=== PATIENT | male | born 2000 | race Caucasian/White ===

== ENCOUNTER 2020-02-24 13:12 | Emergency (ER) | payer OTHER, SELFPAY ==
[2020-02-24 13:23] VITALS: BP 162/85; PULSE 82; RESP 16; TEMP 36.9; O2SAT 97; BMI 31.6
--- NOTE | 2020-02-24 13:51 | HMH.EDUTC ---
[facility] [place] Impression: Strep throat Impacted ear wax Qualifiers: Laterality: bilateral Qualified Code(s): H61.23 - Impacted cerumen, bilateral Disposition: Home, Self-Care Condition on Discharge: Good Instructions: DI for Cerumen Impaction, DI for Strep Throat Additional Instructions: Use over the counter Debrox drops in ears as advised on package to help clear ear wax Follow up with Family doctor if no improvement or any worsening of symptoms Return if needed Straight to ER if any life threatening symptoms *If you did not take Penicillin shot or was unable to, start taking antibiotic immediately and make sure that you take it for the FULL length of time although you should start to feel better in 24-48 hours *change toothbrush and toothpaste 24-48 hours after starting to take antibiotics so you do not reinfect yourself Monitor Temp. Tylenol and/or Ibuprofen as needed. ER if fever is no less than 101 despite alternating Tylenol and Ibuprofen * Encourage fluids, water, Gatorade, powerade, pedialyte if infant/toddler/or child *Cold fluids, popsicles and ice cream may feel good on his throat Prescriptions: Azithromycin [Z-Eugenio 250mg Tab] 250 mg PO DIRECTED #6 tab Transmission Status: Pending to [facility] #[id number] Referrals: Da Barajas MD [Primary Care Provider] - As needed Time of Disposition: 14:10 Medical Decision Making - River Inquiry Pt receiving controlled substance: No River was queried for this patient: No Vital Signs: 02/24/20 13:23 Temperature 98.4 F Temperature Source Oral Pulse Rate [Radial] 82 Respiratory Rate 16 Blood Pressure [Right Arm] 162/85 H Blood Pressure Mean [Right Arm] 110 Blood Pressure Source [Right Arm] Automatic Cuff Blood Pressure Position [Right Arm] Sitting 02 Sat by Pulse Oximetry 97 Oxygen Delivery Method Room Air [facility] [place] - General Stated complaint: ear pain Time Seen by Provider: 02/24/20 13:51 Mode of Arrival: Ambulatory Source of Information: Patient Limitations: No Limitations Description of Symptoms (Recalled from Triage Doc. by RN): left ear buildup. HEENT Symptoms (Recalled from RN notes): Yes Resp Symptoms (Recalled from RN notes): No Skin Symptoms (Recalled from RN notes): No MS Symptoms (Recalled from RN notes): No Functional Status (Recalled from RN notes): wnl - History of Present Illness Provider Complaint: Patient states that he has a history of wax build up in his ears States that for last several days he has been using sweet oil to try to break it up and it isnt working and he has not been hearing well and thinks his ears are stopped up especially his left ear States that also his throat has been red and scratchy and thinks it may be allergies but wanted to get checked for strep throat - Related Data Previous Rx's Medication Instructions Recorded Azithromycin [Z-Eugenio 250mg Tab] 250 mg PO DIRECTED #6 tab 02/24/20 Allergies Allergy/AdvReac Type Severity Reaction Status Date / Time Penicillins Allergy Unknown Verified 08/20/18 12:00 - Worker's Comp Is this a Worker's Comp case?: No [facility] History - Hepatitis A Screen Drug use history?: No High risk sexual behaviors?: No History of sexually transmitted infection?: No Currently employed?: No Childcare worker?: No Do you have indoor plumbing?: Yes Do you have electricity?: Yes Attestation statement:: This patient has been screened for Hepatitis A risk factors. I have reviewed the patient's past medical history: Yes Laterality Cases: Bilateral: Tonsillectomy Amputation: No Fractures: No - Social History Smoking Status: Never smoker Alcohol Intake: never Substance Use Type: denies use Occupational Status: other Family Hx:: Unable to obtain ROS Obtained: Yes All systems reviewed & no additional complaints, Yes Systems reviewed as appropriate & no additional complaints - Constitutional Constitutional: Reports system reviewed and no marjan
[2020-02-24 14:10] LABS: UTC Strep Screen (Rapid) Positive (Negative)
[2020-02-24 14:18] VITALS: BP 162/85; PULSE 82; RESP 16; TEMP 36.9; O2SAT 97
== END 2020-02-24 14:19 | disposition home or self-care (01) ==
PROVIDERS: Emergency Provider Nurse Practitioner; PCP Internal Medicine Adolescent Medicine
DX: J02.0 Streptococcal pharyngitis (principal); H61.23 Impacted cerumen, bilateral; Z88.0 Allergy status to penicillin
CPT/HCPCS: 87880; 99202

== ENCOUNTER 2020-12-07 12:13 | Emergency (ER) | payer OTHER, SELFPAY ==
[2020-12-07 12:16] VITALS: BP 130/77; PULSE 79; RESP 14; TEMP 36.6; O2SAT 98; BMI 31.6
[2020-12-07 12:43] VITALS: BP 000/00; PULSE 77; RESP 16; TEMP 36.6
--- NOTE | 2020-12-07 12:53 | HMH.EDUTC ---
[facility] [place]: Impacted cerumen of both ears Disposition: Home, Self-Care Condition on Discharge: Good Instructions: DI for Cerumen Impaction, Cerumen Impaction Additional Instructions: Drink plenty of fluids. Take tylenol for pain or fever. Follow up with your regular doctor. GO TO THE ER FOR ANY WORSENING SYMPTOMS Referrals: Da Barajas MD [Primary Care Provider] - Time of Disposition: 12:56 Medical Decision Making - Medical Records Medical records reviewed: No: I reviewed the patient's medical records. - River Inquiry Pt receiving controlled substance: No Vital Signs: 12/07/20 12:16 12/07/20 12:43 Temperature 98 F 98 F Temperature Source Oral Pulse Rate 77 Pulse Rate [Right] 79 Respiratory Rate 14 16 Blood Pressure 000/00 L Blood Pressure [Right Arm] 130/77 Blood Pressure Mean [Right Arm] 94 Blood Pressure Source [Right Arm] Automatic Cuff Blood Pressure Position [Right Arm] Sitting 02 Sat by Pulse Oximetry 98 Oxygen Delivery Method Room Air [facility] [place] - General Stated complaint: ear flush Time Seen by Provider: 12/07/20 12:53 Mode of Arrival: Ambulatory Source of Information: Patient Limitations: No Limitations Description of Symptoms (Recalled from Triage Doc. by RN): pt is c/o L ear difficulty hearing. he thinks he has cerumen build up. HEENT Symptoms (Recalled from RN notes): Yes (L ear difficulty hearing) Resp Symptoms (Recalled from RN notes): No Skin Symptoms (Recalled from RN notes): No MS Symptoms (Recalled from RN notes): No Functional Status (Recalled from RN notes): na - History of Present Illness Provider Complaint: He states that he feels like his ears are stopped up. He has had to have his ears irrigated before. He denies any fever/chills/congestion. - Related Data Previous Rx's Medication Instructions Recorded Azithromycin [Z-Eugenio 250mg Tab] 250 mg PO DIRECTED #6 tab 02/24/20 Allergies Allergy/AdvReac Type Severity Reaction Status Date / Time Penicillins Allergy Unknown Verified 12/07/20 12:16 - Worker's Comp Is this a Worker's Comp case?: No [facility] History - Hepatitis A Screen Drug use history?: No High risk sexual behaviors?: No History of sexually transmitted infection?: No Currently employed?: No Childcare worker?: No Do you have indoor plumbing?: Yes Do you have electricity?: Yes Attestation statement:: This patient has been screened for Hepatitis A risk factors. I have reviewed the patient's past medical history: Yes Laterality Cases: Bilateral: Tonsillectomy Amputation: No Fractures: No - Social History Smoking Status: Never smoker Alcohol Intake: never Substance Use Type: denies use Occupational Status: other Family Hx:: Unable to obtain ROS Obtained: Yes All systems reviewed & no additional complaints - Constitutional Constitutional: Denies chills, Denies fever(s) - Eyes Eyes: Denies eye discharge Physical Exam - General General appearance: alert, in no apparent distress - Head Head exam: atraumatic, normocephalic, normal inspection - Eye Eye exam: Present: normal appearance, PERRL, EOMI - ENT ENT exam: Present: normal oropharynx, mucous membranes moist, normal external ear exam - Expanded ENT Exam TM/Canal exam: Bilateral TM: cerumen impaction Mouth exam: Present: normal external inspection Teeth exam: Present: normal inspection Throat exam: Present: normal inspection - Neck Neck exam: Present: normal inspection, full ROM, trachea midline. Absent: meningismus, lymphadenopathy - Chest Chest inspection: Present: normal inspection, symmetric chest wall rise. Absent: tenderness - Respiratory Respiratory exam: Present: normal lung sounds bilaterally. Absent: respiratory distress - Cardiovascular Cardiovascular exam: Present: regular rate, normal rhythm. Absent: JVD - Abdominal Exam Abdominal exam: Present: soft, normal bowel sounds. Absent: distent
== END 2020-12-07 13:09 | disposition home or self-care (01) ==
PROVIDERS: Emergency Provider Nurse Practitioner Family; PCP Internal Medicine Adolescent Medicine
DX: H61.23 Impacted cerumen, bilateral (principal); Z88.0 Allergy status to penicillin
CPT/HCPCS: 69209; 99202; G0463

== ENCOUNTER 2021-01-12 13:35 | Emergency (ER) | payer OTHER, SELFPAY ==
[2021-01-12 13:45] VITALS: BP 147/87; PULSE 76; RESP 19; TEMP 36.8; O2SAT 99; BMI 31.6
--- NOTE | 2021-01-12 14:57 | HMH.EDUTC ---
[facility] [place] Clinical Impression: Impacted ear wax Qualifiers: Laterality: bilateral Qualified Code(s): H61.23 - Impacted cerumen, bilateral Disposition: Home, Self-Care Condition on Discharge: Good Instructions: Vertigo, Fluticasone Nasal [place] Additional Instructions: If you have any further episodes of dizziness make sure to follow up with your Family Doctor Get padding to place on tables for your elbows to rest on Use nasal spray as prescribed Over the counter Debrox may help to keep your ears cleaned out Follow up with your Family Doctor if no improvement or any worsening of symptoms Straight to ER if any life threatening symptoms Prescriptions: Fluticasone Propionate [Flonase 50mcg nasal spray 16gm] 1 spr NS DAILY #1 bottle Transmission Status: Pending to [facility] #[id number] Referrals: Da Barajas MD [Primary Care Provider] - As needed Time of Disposition: 15:03 Medical Decision Making - River Inquiry Pt receiving controlled substance: No River was queried for this patient: No Vital Signs: 01/12/21 13:45 Temperature 98.2 F Temperature Source Oral Pulse Rate [Right Brachial] 76 Respiratory Rate 19 Blood Pressure [Right Arm] 147/87 H Blood Pressure Mean [Right Arm] 107 Blood Pressure Source [Right Arm] Automatic Cuff Blood Pressure Position [Right Arm] Sitting 02 Sat by Pulse Oximetry 99 Oxygen Delivery Method Room Air [facility] [place] HPI - General Stated complaint: had numbness in arm yesterday Time Seen by Provider: 01/12/21 14:59 Mode of Arrival: Ambulatory Source of Information: Patient, Parent(s) Limitations: No Limitations Description of Symptoms (Recalled from Triage Doc. by RN): PATIENT STATES THAT 3 DAYS AGO HE HAD NUMBNESS IN LEFT ARM THAT LASTED 30 SECONDS. THIS MORNING HE WAS CLIMBING STEPS AND BECAME DIZZY; DIZZINESS LASTED APPROX 1 MINUTE HEENT Symptoms (Recalled from RN notes): No Resp Symptoms (Recalled from RN notes): No Skin Symptoms (Recalled from RN notes): No MS Symptoms (Recalled from RN notes): No Functional Status (Recalled from RN notes): WNL - History of Present Illness Provider Complaint: Patient states that he was playing on the computer yesterday and had his elbows on the table and he wasnt sure if he may have pushed on nerve or something but his arm felt numb and tingly but when he raised his arm up off the table it went away States that lasted about 30 sec States that earlier he was walking up the steps he felt a little dizzy but it went away quickly States that he is not having any symptoms at this time but wanted to come in - Related Data Previous Rx's Medication Instructions Recorded Azithromycin [Z-Eugenio 250mg Tab] 250 mg PO DIRECTED #6 tab 02/24/20 Fluticasone Propionate [Flonase 1 spr NS DAILY #1 bottle 01/12/21 50mcg nasal spray 16gm] Allergies Allergy/AdvReac Type Severity Reaction Status Date / Time Penicillins Allergy Unknown Verified 12/07/20 12:16 - Worker's Comp Is this a Worker's Comp case?: No [facility] History - Hepatitis A Screen Drug use history?: No High risk sexual behaviors?: No History of sexually transmitted infection?: No Currently employed?: No Childcare worker?: No Do you have indoor plumbing?: Yes Do you have electricity?: Yes Attestation statement:: This patient has been screened for Hepatitis A risk factors. I have reviewed the patient's past medical history: Yes Laterality Cases: Bilateral: Tonsillectomy Amputation: No Fractures: No - Social History Smoking Status: Never smoker Alcohol Intake: never Substance Use Type: denies use Occupational Status: other Family Hx:: Unable to obtain ROS Obtained: Yes All systems reviewed & no additional complaints, Yes Systems reviewed as appropriate & no additional complaints - Constitutional Constitutional: Reports system reviewed and no additional complaints, except as docu - ENT Ears, Nose, Mouth, and Throat: Reports system reviewed and no additional c
[2021-01-12 15:07] VITALS: BP 147/87; PULSE 76; RESP 19; TEMP 36.8; O2SAT 99
== END 2021-01-12 15:08 | disposition home or self-care (01) ==
PROVIDERS: Emergency Provider Nurse Practitioner; PCP Internal Medicine Adolescent Medicine
DX: R42 Dizziness and giddiness (principal); H61.23 Impacted cerumen, bilateral

== ENCOUNTER 2021-08-30 11:18 | Emergency (ER) | payer OTHER, SELFPAY ==
--- NOTE | 2021-08-30 13:09 | HMH.EDUTC ---
[facility] [place] Clinical Impression: Cerumen impaction Qualifiers: Laterality: bilateral Qualified Code(s): H61.23 - Impacted cerumen, bilateral Disposition: Home, Self-Care Condition on Discharge: Good Instructions: DI for Cerumen Impaction, Cerumen Impaction Additional Instructions: Follow up with your primary care physician Go to the er for any worsening symptoms or concerns Referrals: Da Barajas MD [Primary Care Provider] - Time of Disposition: 14:01 Medical Decision Making - Medical Records Medical records reviewed: No: I reviewed the patient's medical records. - River Inquiry Pt receiving controlled substance: No Vital Signs: 08/30/21 13:14 08/30/21 14:03 Temperature 98.7 F 98.7 F Temperature Source Oral Pulse Rate 69 Pulse Rate [Left] 69 Respiratory Rate 16 16 Blood Pressure 157/91 H Blood Pressure [Right Arm] 157/91 H Blood Pressure Mean [Right Arm] 113 02 Sat by Pulse Oximetry 98 [facility] [place] HPI - General Stated complaint: ear wax removal Time Seen by Provider: 08/30/21 13:09 - History of Present Illness Provider Complaint: He is here to have ear wax impactions removed from both his ears. - Related Data Previous Rx's Medication Instructions Recorded Azithromycin [Z-Eugenio 250mg Tab] 250 mg PO DIRECTED #6 tab 02/24/20 Fluticasone Propionate [Flonase 1 spr NS DAILY #1 bottle 01/12/21 50mcg nasal spray 16gm] Allergies Allergy/AdvReac Type Severity Reaction Status Date / Time Penicillins Allergy Unknown Verified 12/07/20 12:16 [facility] History - Hepatitis A Screen Attestation statement:: This patient has been screened for Hepatitis A risk factors. I have reviewed the patient's past medical history: Yes Laterality Cases: Bilateral: Tonsillectomy Amputation: No Fractures: No - Social History Smoking Status: Never smoker Alcohol Intake: never Substance Use Type: denies use Occupational Status: other Family Hx:: Unable to obtain ROS Obtained: Yes All systems reviewed & no additional complaints - Constitutional Constitutional: Reports system reviewed and no additional complaints, except as docu - Eyes Eyes: Reports system reviewed and no additional complaints, except as docu - Gastrointestinal Gastrointestingal: Reports: system reviewed and no additional complaints, except as docu Physical Exam - General General appearance: alert, in no apparent distress - Head Head exam: atraumatic, normocephalic, normal inspection - Eye Eye exam: Present: normal appearance, PERRL, EOMI - ENT ENT exam: Present: normal oropharynx, mucous membranes moist, normal external ear exam - Expanded ENT Exam TM/Canal exam: Bilateral TM: cerumen impaction - Neck Neck exam: Present: normal inspection, full ROM, trachea midline. Absent: meningismus, lymphadenopathy - Chest Chest inspection: Present: normal inspection, symmetric chest wall rise. Absent: tenderness - Respiratory Respiratory exam: Present: normal lung sounds bilaterally. Absent: respiratory distress - Cardiovascular Cardiovascular exam: Present: regular rate, normal rhythm. Absent: JVD - Abdominal Exam Abdominal exam: Present: soft, normal bowel sounds. Absent: distention, tenderness, guarding - Extremities Exam Extremities exam: Present: normal inspection, full ROM, normal capillary refill. Absent: calf tenderness - Back Exam Back exam: Present: normal inspection. Absent: tenderness - Neurological Exam Neurological exam: Present: alert, oriented X3 - Psychiatric Psychiatric exam: Present: normal affect, normal mood - Skin Skin exam: Present: warm, dry, intact, normal color - Lymphatic Lymphatic Findings: no adenopathy Procedures - Ear Wax Removal Both Ears Results: Re-examined: cerumen removed completely TM Examination: TM(s) intact, normal appearance Ear Canal Exam: atraumatic Patient Tolerated Procedure: well Complications: no problems Techniqu
[2021-08-30 13:14] VITALS: BP 157/91; PULSE 69; RESP 16; TEMP 37.1; O2SAT 98; BMI 31.6
[2021-08-30 14:03] VITALS: BP 157/91; PULSE 69; RESP 16; TEMP 37.1
== END 2021-08-30 14:04 | disposition home or self-care (01) ==
PROVIDERS: Emergency Provider Nurse Practitioner Family; PCP Internal Medicine Adolescent Medicine
DX: H61.23 Impacted cerumen, bilateral (principal); Z88.0 Allergy status to penicillin
CPT/HCPCS: 69209 ×2; 99202; G0463

== ENCOUNTER 2023-04-26 10:31 | Emergency (ER) | payer BC, SELFPAY ==
[2023-04-26 10:32] VITALS: BP 139/86; PULSE 90; RESP 18; TEMP 36.8; O2SAT 99; BMI 34.0
--- NOTE | 2023-04-26 11:41 | EXP.UTC ---
Discharge Plan Disposition Patient Disposition: Home, Self-Care Condition: Good Referrals Follow up/Referrals: Da Barajas MD [Primary Care Provider] - See instructions Activity Restrictions/Add. Instructions Additional Instructions/Restrictions: Over the counter Debrox may help to removed excessive wax from ears Follow up with your Family Doctor if needed Straight to ER if any life threatening symptoms Return if needed Clinical Impressions Clinical Impression: Impacted ear wax Qualifiers: Laterality: right Qualified Code(s): H61.21 - Impacted cerumen, right ear Instructions Patient Instructions: DI for Cerumen Impaction Discharge ED Provider: Tabatha Pa [facility] General Stated complaint: POSSIBLE EAR INFECTION Mode of Arrival: Ambulatory Source of Information: Patient Limitations: No Limitations Time Seen by Provider: 04/26/23 11:41 Description of Symptoms (Recalled from Triage Doc. by RN): Pt has pain in the right ear. Pt feels like he is having hearing loss within that right ear. HEENT Symptoms (Recalled from RN notes): No Resp Symptoms (Recalled from RN notes): No Skin Symptoms (Recalled from RN notes): Yes MS Symptoms (Recalled from RN notes): No Functional Status (Recalled from RN notes): n/a History of Present Illness Provider Complaint: Patient states that he feels like his right ear is stopped up States that he cannot hear out of it States that it doesnt hurt just feels uncomfortable where he cant hear out of it Denies pain or unable to hear in left side Related Data Allergies Allergy/AdvReac Type Severity Reaction Status Date / Time Penicillins Allergy Unknown Verified 04/26/23 11:24 Worker's Comp Is this a Worker's Comp case?: No [facility] Disclaimer: The information contained in this section may have been updated after the patient was seen, as this information can be updated by other users. Social History Smoking Status: Never smoker alcohol intake: never substance use type: denies use current occupational status: other Travel in the last 8 weeks: None ROS Obtained: Yes All systems reviewed & no additional complaints except as documented and Yes Systems reviewed as appropriate & no additional complaints except as documented Constitutional Constitutional: Reports system reviewed and no additional complaints, except as documented and Reports as per HPI ENT Ears, Nose, Mouth, and Throat: Reports system reviewed and no additional complaints, except as documented, Reports as per HPI and Reports otalgia Cardiovascular Cardiovascular: Reports system reviewed and no additional complaints, except as documented and Reports as per HPI Respiratory Respiratory: Reports system reviewed and no additional complaints, except as documented and Reports as per HPI Gastrointestinal Gastrointestingal: Reports system reviewed and no additional complaints, except as documented and as per HPI Physical Exam General General appearance: alert and in no apparent distress Expanded ENT Exam TM/Canal exam: Right TM: cerumen impaction Respiratory Respiratory exam: Present normal lung sounds bilaterally; Absent respiratory distress or wheezes Cardiovascular Cardiovascular exam: Present regular rate, normal rhythm and normal heart sounds Abdominal Exam Abdominal exam: Present soft and normal bowel sounds; Absent distention or tenderness Neurological Exam Neurological exam: Present alert, oriented X3 and normal gait Medical Decision Making River Inquiry Pt receiving controlled substance: No River was queried for this patient: No Vital Signs: 04/26/23 10:32 Temperature 98.3 F Temperature Source Oral Pulse Rate [Right Radial] 90 Respiratory Rate 18 Blood Pressure [Right Arm] 139/86 Blood Pressure Mean [Right Arm] 103 Blood Pressure Source [Right Arm] Automatic Cuff Blood Pressure Position [Right Arm] Sitting 02 Sat by Pulse Oximetry 99 Oxygen D
[2023-04-26 12:11] VITALS: BP 139/86; PULSE 90; RESP 18; TEMP 36.8; O2SAT 99
== END 2023-04-26 12:11 | disposition home or self-care (01) ==
PROVIDERS: Emergency Provider Nurse Practitioner; PCP Internal Medicine Adolescent Medicine
DX: H61.21 Impacted cerumen, right ear
CPT/HCPCS: 69209; 99212; 99213; G0463

== ENCOUNTER 2023-10-26 15:59 | Outpatient (POV) | payer BC, SELFPAY | END 2023-10-26 23:59 | disposition home or self-care (01) | LOC: SC 15:59 | PROVIDERS: PCP Internal Medicine Adolescent Medicine; Visit Provider Dermatology | DX: Z00.00 Encounter for general adult medical examination without abnormal findings (principal) ==

== ENCOUNTER 2024-12-29 17:00 | Outpatient (RCR) | payer BC, SELFPAY | END 2024-12-29 23:59 | disposition home or self-care (01) | LOC: PT 17:00 | PROVIDERS: Visit Provider Physician Assistant | DX: M25.561 Pain in right knee (principal) | CPT/HCPCS: 97110; 97162; 97530 ==